=== PATIENT | female | born 1960 | race Caucasian/White ===

== ENCOUNTER 2024-12-19 10:06 | Outpatient (REF) | payer MEDICAID, SELFPAY ==
--- NOTE | 2024-12-19 09:00 | PAPFT_PTH ---
PATIENT: Luh Walsh LOC: [facility] U#:[id number] AGE/SX: 64/F ROOM: RE12/19/[address]: Nasreen Jenkins : 1960 BED: DIS: 12/19/2024 SPEC #: [id number] RECD: 12/19/24 17:36 STATUS: JOSIAS SALEEM #: [id number] MELISSA: 12/19/24 09:[address]: Nasreen Jenkins DEPT: [facility] Cytology RECD BY: Mel Rebolledo Tissues: 1 - CX/ENDOCX FOR PAP SMEARS Procedures: PAP THIN PREP/[facility] Screening HPV DNA PROBE Comments: [id number] (HPV 16 & 18/45)
== END 2024-12-19 10:07 | disposition home or self-care (01) ==
LOC: NCHCN 10:06
PROVIDERS: PCP Family Medicine; Visit Provider Family Medicine
DX: Z12.4 Encounter for screening for malignant neoplasm of cervix (principal); Z00.00 Encounter for general adult medical examination without abnormal findings
CPT/HCPCS: 88142; 87624